=== PATIENT | female | born 1980 | race African-American/Black ===

== ENCOUNTER 2017-07-01 00:15 | Emergency (ER) | payer MEDICAID ==
[~2017-07-01] VITALS: Ht 167.6 cm; Wt 81.5 kg
[2017-07-01 00:18] VITALS: BP 134/79; PULSE 77; RESP 16; TEMP 98.4; O2SAT 98
[2017-07-01] MEDS ORDERED: SODIUM CHLOR 0.9% 1000 ML INJ 1,000 ML IV ONE (01:15)
--- NOTE | 2017-07-01 01:17 | PD ---
HPI Chief Complaint: Diabetic Time Seen by Provider: 01:01 Travel History International Travel<30 days: No Contact w/Intl Traveler<30days: No Traveled to known affect area: No History of Present Illness HPI This is a 36-year-old female presents today with complaints of weakness and dizziness and nausea vomiting 5 hours. Patient noted to self to have a blood sugar of 246 at home. She is not a diabetic. She did have gestational diabetes previously. Her who is a diabetic check her sugar and as when she found that she had elevated blood sugar. 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 She states that she has not been eating or drinking well because of school. PFSH Past Medical History Cancer: No Cardiovascular Problems: No Diabetes: Yes (with ) Patient Takes Glucophage: No Diminished Hearing: No Genitourinary: No Hypertension: Yes (WITH ONLY) Musculoskeletal: No Neurologic: No Psychiatric: No Reproductive: No Respiratory: Yes Immunizations Current: Yes ?: Unknown LMP: 05/25/17 Menopausal: No : 3 Para: 2 Miscarriage: 1 Past Surgical History Appendectomy: Yes (2016) Other Surgery: No Social History Alcohol Use: Yes (OCC.) Tobacco Use: No Substance Use: No Allergies-Medications (Allergen,Severity, Reaction): Coded Allergies: No Known Allergies (Verified , 07/01/17) Reported Meds & Prescriptions Reported Meds & Active Scripts Active Metformin (Metformin HCl) 500 Mg Tab 500 Mg PO BIDPC Review of Systems Except as stated in HPI: all other systems reviewed are Neg General / Constitutional: No: Fever, Chills HENT: No: Headaches, Lightheadedness Cardiovascular: No: Chest Pain or Discomfort, Palpitations Respiratory: No: Cough, Shortness of Breath Gastrointestinal: Positive: Nausea, Vomiting, No: Diarrhea, Abdominal Pain Musculoskeletal: No: Weakness, Pain Neurologic: Positive: Dizziness, No: Weakness, Headache Physical Exam Narrative GENERAL: Well developed well-nourished female in no acute rest her distress. SKIN: Focused skin assessment warm/dry. HEAD: Atraumatic. Normocephalic. EYES: Pupils equal and round. No scleral icterus. No injection or drainage. ENT: No nasal bleeding or discharge. Mucous membranes pink and moist. NECK: Trachea midline. Supple. CARDIOVASCULAR: Regular rate and rhythm. No murmur appreciated. RESPIRATORY: No accessory muscle use. Clear to auscultation. Breath sounds equal bilaterally. GASTROINTESTINAL: Abdomen soft, non-tender, nondistended. MUSCULOSKELETAL: No obvious deformities. No clubbing. No cyanosis. No edema. NEUROLOGICAL: Awake and alert. No obvious cranial nerve deficits. Motor grossly within normal limits. Normal speech. PSYCHIATRIC: Appropriate mood and affect; insight and judgment normal. Data Data Last Documented VS Vital Signs Date Time Temp Pulse Resp B/P (MAP) Pulse Ox O2 Delivery O2 Flow Rate FiO2 07/01/17 00:45 96 Nasal Cannula 07/01/17 00:18 98.4 77 16 134/79 (97) Orders Orders Complete Blood Count With Diff (07/01/17 01:01) Comprehensive Metabolic Panel (07/01/17 01:01) Iv Access Insert/Monitor (07/01/17 01:01) Ecg Monitoring (07/01/17 01:01) Oximetry (07/01/17 01:01) Sodium Chlor 0.9% 1000 Ml Inj (Ns 1000 M (07/01/17 01:15) Labs Laboratory Tests Test 07/01/17 01:10 White Blood Count 14.5 TH/MM3 Red Blood Count 4.41 MIL/MM3 Hemoglobin 13.0 GM/DL Hematocrit 39.2 % Mean Corpuscular Volume 88.9 FL Mean Corpuscular Hemoglobin 29.5 PG Mean Corpuscular Hemoglobin Concent 33.2 % Red Cell Distribution Width 13.5 % Platelet Count 270 TH/MM3 Mean Platelet Volume 8.5 FL Neutrophils (%) (Auto) 72.5 % Lymphocytes (%) (Auto) 19.1 % Monocytes (%) (Auto) 7.4 % Eosinophils (%) (Auto) 0.8 % Basophils (%) (Auto) 0.2 % Neutrophils # (Auto) 10.5 TH/MM3 Lymphocytes # (Auto) 2.8 TH/MM3 Monocytes # (Auto) 1.1 TH/MM3 Eosinophils # (Auto) 0.1 TH/MM3 Basophils # (Auto) 0.0 TH/MM3 CBC Comment DIFF FINAL Differential Comment Blood Urea Nitrogen 13 MG/DL Creatinine 0.75 MG/DL Random Glucose 237 MG/DL Total Protein 7.0 GM/DL Albumin 3.4 GM/DL Calcium Level 8.6 MG/DL Alkaline Phosphatase 114 U/L Aspartate Amino Transf (AST/SGOT) 12 U/L Alanine Aminotransferase (ALT/SGPT) 27 U/L Total Bilirubin 0.6 MG/DL Sodium Level 137 MEQ/L Potassium Level 3.9 MEQ/L Chloride Level 102 MEQ/L Carbon Dioxide Level 27.4 MEQ/L Anion Gap 8 MEQ/L Estimat Glomerular Filtration Rate 106 ML/MIN MDM Medical Decision Making Medical Screen Exam Complete: Yes Emergency Medical Condition: Yes Differential Diagnosis New onset diabetes versus dehydration versus anemia versus metabolic derangement Narrative Course 36-year-old female presents with complaints of nausea vomiting and hyperglycemia. The patient is not a diabetic but did have gestational diabetes. Her checked her blood sugar and found it to be in the 240s. Her blood sugar here is elevated in the mid 200s. She's been given 1 L of IVD fluid. The rest of her electrolytes appear within normal limits. She'll be discharged with a prescription for metformin. She'll be started on 500 mg twice daily. She'll follow up with outpatient physician. She'll be given the is ailing clinic information. Diagnosis Primary Impression: New onset type 2 diabetes mellitus Additional Instructions: Check blood sugar twice daily and record. Follow up with a primary care physician. Return if you develop fevers, chills, nausea vomiting diarrhea, or any other reason concerns. Med/Other Pt SpecificInfo: Prescription(s) given Scripts Metformin (Metformin) 500 Mg Tab 500 MG PO BIDPC for Blood Sugar Management, #60 TAB 0 Refills Prov: Beny Grayson MD 07/01/17 Disposition: 01 DISCHARGE HOME Condition: Stable Beny Grayson MD Jul 01, 2017 01:17
[2017-07-01] MEDS ORDERED: METF500T PO (01:30)
[2017-07-01 02:36] LABS: AUTOMATED NEUTROPHIL # 10.5 TH/MM3 (1.8-7.7); BASOPHIL % 0.2 % (0.0-2.0); EOSINOPHIL # 0.1 TH/MM3 (0-0.4); EOSINOPHIL % 0.8 % (0.0-4.0); HEMATOCRIT 39.2 % (35.0-46.0); HEMO FLAGS DIFF FINAL; LYMPH % 19.1 % (9.0-44.0); LYMPHOCYTE # 2.8 TH/MM3 (1.0-4.8); MEAN CELL VOLUME 88.9 FL (80.0-100.0); MEAN CORPUSCULAR HEMOGLOBIN 29.5 PG (27.0-34.0); MEAN CORPUSCULAR HGB CONC 33.2 % (32.0-36.0); MONO % 7.4 % (0.0-8.0); NEUT % 72.5 % (16.0-70.0); PLATELET COUNT 270 TH/MM3 (150-450); RED BLOOD COUNT 4.41 MIL/MM3 (4.00-5.30); RED CELL DISTRIBUTION WIDTH 13.5 % (11.6-17.2); WHITE BLOOD COUNT 14.5 TH/MM3 (4.0-11.0)
[2017-07-01 03:31] LABS: ALT (GPT) 27 U/L (10-53); ANION GAP 8 MEQ/L (5-15); AST (GOT) 12 U/L (15-37); BICARBONATE 27.4 MEQ/L (21.0-32.0); BLOOD UREA NITROGEN 13 MG/DL (7-18); CHLORIDE 102 MEQ/L (98-107); GLOMERULAR FILTRATION RATE 106 ML/MIN (>89); POTASSIUM 3.9 MEQ/L (3.5-5.1); SODIUM (NA) 137 MEQ/L (136-145)
[2017-07-01 03:33] LABS: ALKALINE PHOSPHATASE 114 U/L (45-117); TOTAL BILIRUBIN ADULT 0.6 MG/DL (0.2-1.0)
== END 2017-07-01 04:30 | disposition home or self-care (01) ==
LOC: NEPE 00:15
DX: E11.65 Type 2 diabetes mellitus with hyperglycemia (principal)
CPT/HCPCS: 80053; 85025; 96360; 96361; 99284; J7030